=== PATIENT | female | born 2000 | race Caucasian/White ===

== ENCOUNTER 2023-09-17 10:39 | Emergency (ER) | payer MEDICAID ==
[2023-09-17] MEDS ORDERED: SODIUM CHLORIDE 0.9% 1,000 ML IV STA (11:23)
[2023-09-17 12:04] LABS: CALCIUM 10.3 mg/dL (8.5-10.3); CREATININE 0.8 mg/dL (0.6-1.3); POTASSIUM 4.4 mmol/L (3.5-4.5)
[2023-09-17] MEDS ORDERED: LACTATED RINGERS 1,000 ML IV STA (12:56)
[2023-09-17] MEDS ORDERED: METOCLOPRAMIDE 10 MG/2 ML VIAL IVP STA (12:56)
--- NOTE | 2023-09-17 12:57 | ED Physician Documentation ---
PD HPI ABD PAIN - Stated complaint Stated Complaint: VOMITING - Chief complaint Chief Complaint: Abd Pain - History obtained from History obtained from: Patient - Additional information Additional information: G1 in early has been vomiting for the last 2 weeks with associated weight loss. There is no associated pain, bleeding, fluid loss. She tried Unisom and B6 without relief. 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 Other Past Medical History: breast cyst - Past Surgical History Past Surgical History: Yes /TRAFFIC OFFICER: Other - Present Medications Home Medications: Ambulatory Orders Medication Instructions Recorded Confirmed Metoclopramide [Reglan] 10 mg PO Q6H PRN #20 tablet 09/17/23 Ondansetron Odt [Zofran] 4 mg TL Q6H PRN #20 tablet 09/17/23 - Allergies Allergies/Adverse Reactions: Allergies Allergy/AdvReac Type Severity Reaction Status Date / Time No Known Drug Allergies Allergy Verified 09/17/23 11:09 - Social History Does the pt smoke?: No Smoking Status: Never smoker Does the pt drink ETOH?: No Does the pt have substance abuse?: No - Immunizations Immunizations are current?: Yes PD ED PE NORMAL - Vitals Vital signs reviewed: Yes - General General: Alert and oriented X 3, No acute distress - Abdomen Abdomen: Normal bowel sounds, Soft, Non tender - Female Female : Other (Bedside ultrasound demonstrates single live intrauterine with a heart rate of 160.) - Neuro Neuro: Alert and oriented X 3, Normal speech Results - Vitals Vitals: Vital Signs - 24 hr 09/17/23 09/17/23 09/17/23 11:02 13:48 14:50 Temperature 36.9 C Heart Rate 110 H 66 69 Respiratory 15 16 16 Rate Blood Pressure 129/85 H 107/80 103/72 O2 Saturation 99 100 100 Oxygen O2 Source Room air - Labs Labs: Laboratory Tests 09/17/23 11:34 Sodium 132 L Potassium 4.4 Chloride 98 L Carbon Dioxide 18 L Anion Gap 16.0 H BUN 11 Creatinine 0.8 Estimated GFR (MDRD) 89 Glucose 69 L Calcium 10.3 PD Medical Decision Making - ED course ED course: 23-year-old with vomiting in . She does show objective evidence of dehydration with tachycardia, weight loss, and acidosis on BMP. She is hydrated with 2 L of crystalloid and administered IV Reglan. After the above intervention she Successfully was able to eat and drink. Departure - Departure Disposition: 01 Home, Self Care Clinical Impression: Hyperemesis gravidarum Condition: Good Record reviewed to determine appropriate education?: Yes Instructions: ED Preg Morning Sickness Follow-Up: [facility] [Provider Group] Prescriptions: Metoclopramide [Reglan] 10 mg PO Q6H PRN #20 tablet PRN Reason: nausea or headache Ondansetron Odt [Zofran] 4 mg TL Q6H PRN #20 tablet PRN Reason: Nausea / Vomiting Comments: Call your doctor to arrange a follow-up appointment, make the next available appointment. In the interim, return anytime if worse or if new symptoms develop. Forms: PCP List Discharge Date/Time: 09/17/23 15:00
[2023-09-17 13:52] VITALS: O2SAT 100
[2023-09-17 14:59] VITALS: BP 103/72
== END 2023-09-17 15:00 | disposition home or self-care (01) ==
LOC: ED 10:39
DX: O21.1 Hyperemesis gravidarum with metabolic disturbance (principal); Z3A.00 Weeks of gestation of pregnancy not specified
CPT/HCPCS: 36415; 80048; 96361; 96374; 99283; J2765; J7120

== ENCOUNTER 2024-04-23 06:39 | Emergency (ER) | payer MEDICAID ==
[2024-04-23 06:57] VITALS: O2SAT 98
[2024-04-23 07:51] LABS: BASOPHILS % (AUTO) 0.7 %; EOSINOPHILS % (AUTO) 0.9 %; HCT - HEMATOCRIT 42.1 % (37.0-47.0); HGB - HEMOGLOBIN 13.7 g/dL (12.0-16.0); MEAN CORPUSCULAR HEMOGLOBIN 29.8 pg (27.0-31.0); MEAN CORPUSCULAR HGB CONC 32.5 g/dL (32.0-36.0); MEAN CORPUSCULAR VOLUME 91.5 fL (81.0-99.0); MEAN PLATELET VOLUME 9.4 fL (7.9-10.8); MONOCYTES # (AUTO) 0.4 10^3/uL (0.0-1.0); NEUTROPHILS # (AUTO) 3.1 10^3/uL (1.5-6.6); PLT - PLATELET COUNT 271 10^3/uL (130-450); RED CELL DISTRIBUTION WIDTH 11.9 % (12.0-15.0); WHITE BLOOD COUNT 4.5 x10^3/uL (4.8-10.8)
[2024-04-23 08:04] LABS: ALBUMIN 4.7 g/dL (3.2-5.5); ALBUMIN/GLOBULIN RATIO 1.5 (1.0-2.2); ALKALINE PHOSPHATASE 33 IU/L (42-121); ALT ALANINE AMINOTRANSFERASE 11 IU/L (10-60); AST ASPARTATE AMINOTRANSFERASE 17 IU/L (10-42); BILIRUBIN,TOTAL 0.5 mg/dL (0.2-1.0); BUN - BLOOD UREA NITROGEN 10 mg/dL (6-20); CARBON DIOXIDE - CO2 24 mmol/L (21-32); CHLORIDE 102 mmol/L (101-111); CREATININE 0.8 mg/dL (0.6-1.3); GFR - MDRD 88 (>89); GLUCOSE 97 mg/dL (74-104); POTASSIUM 3.5 mmol/L (3.5-4.5); SODIUM 138 mmol/L (135-145); TOTAL PROTEIN 7.8 g/dL (6.4-8.9)
[2024-04-23] MEDS: ONDANSETRON 4 MG/2 ML VIAL IVP STA (08:13)
[2024-04-23] MEDS: SODIUM CHLORIDE 0.9% 1,000 ML IV STA (08:14)
[2024-04-23 08:23] LABS: LIPASE < 10 U/L (11-82)
--- NOTE | 2024-04-23 08:32 | ED Physician Documentation ---
History of Present Illness - Stated complaint Stated Complaint: NAUSEA,VOMITING,SOA - Chief complaint Chief Complaint: Abd Pain - History obtained from History obtained from: Patient - Additonal information Additional information: The patient comes to the emergency department chief complaint of ongoing nausea, vomiting, and diarrhea. She first became ill about 5 days ago with fever, upper respiratory symptoms, and "a sore stomach". The patient states that the fever lasted for 3 days and the upper respiratory symptoms for the most part as well and then began to subside. She began vomiting 2 days after her symptoms started and then a couple days later, developed diarrhea. She states that she has mostly now been vomiting in the morning or after she coughs. She states that the diarrhea has continued though and that she just like water going straight through her. She is having to miss work and she is concerned about this. No abdominal pain. She states that after coughing or vomiting, she feels bit short of breath but that her cough is dry. She states she just feels generally very tired. Her significant other had an upper respiratory illness few days before her but this past without incident. No other sick contacts that she knows of. The patient states she is not currently nauseated and that she has been able to hold down fluids otherwise. She is on Nexplanon ever since September. She states she has had 2 menstrual periods during that time and then had very light bleeding this week for which she used 1 tampon. She states she has just a mild amount of brown discharge now. She is not known to be . 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 - Past Surgical History Past Surgical History: Yes /MEDICAL RECORDS TECHNICIAN: Other - Present Medications Home Medications: Ambulatory Orders Medication Instructions Recorded Confirmed Metoclopramide [Reglan] 10 mg PO Q6H PRN #20 tablet 09/17/23 04/23/24 Ondansetron Odt [Zofran] 4 mg TL Q6H PRN #20 tablet 09/17/23 04/23/24 Etonogestrel [Nexplanon] 1 applic SUBQ OAW 04/23/24 04/23/24 Naproxen 1 tab PO PRN PRN 04/23/24 04/23/24 Ondansetron Odt [Zofran] 4 mg TL Q6H PRN #10 tablet 04/23/24 - Allergies Allergies/Adverse Reactions: Allergies Allergy/AdvReac Type Severity Reaction Status Date / Time No Known Drug Allergies Allergy Verified 04/23/24 06:54 - Social History Does the pt smoke?: No Smoking Status: Never smoker Does the pt drink ETOH?: No Does the pt have substance abuse?: No - Immunizations Immunizations are current?: Yes - POLST Patient has POLST: No PD ED PE NORMAL - Vitals Vital signs reviewed: Yes - General General: Alert and oriented X 3, No acute distress, Well developed/nourished - HEENT HEENT: Atraumatic, PERRL, EOMI, Moist mucous membranes - Neck Neck: Supple, no meningeal sign - Cardiac Cardiac: RRR, No murmur, Strong equal pulses - Respiratory Respiratory: No respiratory distress, Clear bilaterally - Abdomen Abdomen: Soft, Non distended, Other (Mild epigastric tenderness, no rebound or guarding.) - Derm Derm: Normal color, Warm and dry, No rash - Extremities Extremities: No deformity, No edema - Neuro Neuro: Other (Alert, grossly intact.) - Psych Psych: Normal mood, Normal affect Results - Vitals Vitals: Oxygen O2 Source Room air - Labs Labs: Laboratory Tests 04/23/24 04/23/24 04/23/24 07:35 07:35 07:35 WBC 4.5 L RBC 4.60 Hgb 13.7 Hct 42.1 MCV 91.5 MCH 29.8 MCHC 32.5 RDW 11.9 L Plt Count 271 MPV 9.4 Neut # (Auto) 3.1 Lymph # (Auto) 1.0 L Bertie # (Auto) 0.4 Eos # (Auto) 0.0 Baso # (Auto) 0.0 Absolute Nucleated RBC 0.00 Nucleated RBC % 0.0 Sodium 138 Potassium 3.5 Chloride 102 Carbon Dioxide 24 Anion Gap 12.0 BUN 10 Creatinine 0.8 Estimated GFR (MDRD) 88 L Glucose 97 Calcium 10.0 Total Bilirubin 0.5 AST 17 ALT 11 Alkaline Phosphatase 33 L Total Protein 7.8 Albumin 4.7 Globulin 3.1 Albumin/Globulin Ratio 1.5 Lipase < 10 L Beta HCG, Quant < 0.6 Nasal Adenovirus (PCR) NOT DETECTED Nasal B. parapertussis DNA (PCR) NOT DETECTED Nasal Coronavir 229E PCR NOT DETECTED Nasal Coronavir HKU1 PCR NOT DETECTED Nasal Coronavir NL63 PCR DETECTED A Nasal Coronavir OC43 PCR NOT DETECTED Nasal Enterovir/Rhinovir PCR NOT DETECTED Nasal Influenza B PCR NOT DETECTED Nasal Influenza A PCR NOT DETECTED Nasal Parainfluen 1 PCR NOT DETECTED Nasal Parainfluen 2 PCR NOT DETECTED Nasal Parainfluen 3 PCR NOT DETECTED Nasal Parainfluen 4 PCR NOT DETECTED Nasal RSV (PCR) NOT DETECTED Nasal B.pertussis DNA PCR NOT DETECTED Nasal C.pneumoniae (PCR) NOT DETECTED Buddy Human Metapneumo PCR NOT DETECTED Nasal M.pneumoniae (PCR) NOT DETECTED Nasal SARS-CoV-2 (PCR) DETECTED A PD Medical Decision Making - ED course Complexity details: reviewed results, re-evaluated patient, considered differential, d/w patient ED course: The patient was treated with IV fluids and Zofran and worked up with labs including test. Workup is negative. Patient is stable for discharge home. She is feeling better after symptomatic treatment. Departure - Departure Disposition: 01 Home, Self Care Clinical Impression: COVID-19 Condition: Stable Instructions: ED Viral Syndrome Prescriptions: Ondansetron Odt [Zofran] 4 mg TL Q6H PRN #10 tablet PRN Reason: Nausea / Vomiting Comments: Your blood work is reassuring and your test is negative. Your viral panel is positive for COVID, which is not surprising considering your symptoms. There is quite a bit of this going around lately, but in general, it will pass on its own without incidence. Symptoms usually last about 1 to 2 weeks. Please stay home from work until you are beginning to feel better. A prescription for nausea medicine has been electronically transmitted to the [facility] pharmacy in [place], your pharmacy of choice on record. Forms: PCP List Discharge Date/Time: 04/23/24 10:24
[2024-04-23 09:03] LABS: B. PARAPERTUSSIS- RESP PCR PAN NOT DETECTED; B. PERTUSSIS- RESP PCR PANEL NOT DETECTED; C. PNEUMONIAE- RESP PCR PANEL NOT DETECTED; CORONAVIRUS 229E-RESP PCR NOT DETECTED; CORONAVIRUS HKU1-RESP PCR NOT DETECTED; CORONAVIRUS NL63-RESP PCR DETECTED; CORONAVIRUS OC43-RESP PCR NOT DETECTED; HUMAN METAPNEUMOVIRUS NOT DETECTED; INFLUENZA A- RESP PCR PANEL NOT DETECTED; INFLUENZA B - RESP PCR PANEL NOT DETECTED; M. PNEUMONIAE- RESP PCR PANEL NOT DETECTED; PARAINFLUENZA VIRUS 1 NOT DETECTED; PARAINFLUENZA VIRUS 2 NOT DETECTED; PARAINFLUENZA VIRUS 3 NOT DETECTED; PARAINFLUENZA VIRUS 4 NOT DETECTED; RHINOVIRUS/ENTEROVIRUS NOT DETECTED; RSV- RESP PCR PANEL NOT DETECTED
[2024-04-23 09:05] LABS: SARS-CoV-2 -RESP PCR PANEL DETECTED
[2024-04-23 10:29] VITALS: BP 122/82
== END 2024-04-23 10:24 | disposition home or self-care (01) ==
LOC: ED 06:39
DX: U07.1 COVID-19 (principal)
CPT/HCPCS: 36415; 80053; 83690; 84702; 85025; 87633; 96374; 99283